=== PATIENT | female | born 1945 | race Caucasian/White ===

== ENCOUNTER 2016-10-24 18:22 | Emergency (ER) | payer OTHER ==
[2016-10-24 18:33] VITALS: BP 104/62; PULSE 83; TEMP 97.8; BMI 24.5
--- NOTE | 2016-10-24 19:27 | PDOC ---
History of Present Illness - General Chief Complaint: Pain, Acute Stated Complaint: PAIN FROM RIBS GOING TO BACK Time Seen by Provider: 10/24/16 19:04 History Source: Patient Exam Limitations: No Limitations - History of Present Illness Initial Comments: 10/24/16 19:25 My Chief Complaint: Reports having pain from her right side of her upper back to lower back [facility] History of Present Illness: Pt. is a 71 y/o female with h/o cardiac d/o, diverticulitis, osteoporosis, diverticulitis, spinal stenosis, fibromyalgia here today c/o complaining of pain from right upper back to right lower back that started approximately 4 days ago. Patient does not remember doing any heavy lifting that might of cause pain to develop. Patient does have bilateral rotator cuff tears and cannot use her right shoulder as usual. Patient reports that back pain is worse with movement. Patient denies any fever, nausea vomiting or any other symptoms. Patient took Aleve earlier today without relief of symptoms. Patient denies any urinary symptoms. Patient denies any radiation of pain down the legs or any saddle anesthesia or any incontinency. 10/24/16 21:28 10/24/16 21:56 Timing/Duration: changing over time Severity: moderate Associated Symptoms: reports: denies symptoms Past History - Past Medical History Allergies/Adverse Reactions: Allergies Allergy/AdvReac Type Severity Reaction Status Date / Time apple Allergy Verified 10/24/16 18:29 avocado Allergy Verified 10/24/16 18:29 peach Allergy Verified 10/24/16 18:29 IV DYE Allergy Uncoded 10/24/16 18:29 Home Medications: Ambulatory Orders Cyclobenzaprine HCl [Flexeril 10 mg] 10 mg PO Q8H PRN #21 tablet 10/24/16 Naproxen [Naprosyn -] 500 mg PO BID PRN #14 tablet 10/24/16 Nitrofurantoin Monohyd/M-Cryst [Macrobid -] 100 mg PO BID #14 capsule 10/24/16 Cardiac Disorders: Yes GI Disorders: Yes (DIVERTICULITIS) Other medical history: OSTEOPEROSIS, SPINAL STENSOSIS, FIBROMIALGIA, TORN ROTATOR CUFF B/L - Surgical History Cardiac Surgery: Yes (OPERN HEART AT AGE 19) - Psycho/Social/Smoking Cessation Hx Suicidal Ideation: No Smoking History: Never smoked Hx Alcohol Use: No Drug/Substance Use Hx: No Review of Systems - Review of Systems Able to Perform ROS?: Yes Constitutional: No: Symptoms Reported HEENTM: No: Symptoms Reported Respiratory: No: Symptoms reported Cardiac (ROS): No: Symptoms Reported ABD/GI: No: Symptoms Reported : No: Symptoms Reported Musculoskeletal: Yes: Back Pain (RT.THORACIC/LUMBAR BACK PAIN) *Physical Exam - Vital Signs Last Vital Signs Temp Pulse Resp BP Pulse Ox 97.8 F 83 16 104/62 97 10/24/16 18:23 10/24/16 18:23 10/24/16 18:23 10/24/16 18:23 10/24/16 18:23 - Physical Exam General Appearance: Yes: Appropriately Dressed Respiratory/Chest: positive: Lungs Clear, Normal Breath Sounds. negative: Chest Tender, Respiratory Distress Cardiovascular: positive: Regular Rhythm, Regular Rate, S1, S2 Gastrointestinal/Abdominal: positive: Normal Bowel Sounds, Soft. negative: Tender, Organomegaly, Distended, Guarding, Rebound, Tenderness, Hepatomegaly, Spleenomegaly Musculoskeletal: positive: Normal Inspection, Decreased Range of Motion (from waist ), Muscle Spasm (rt. sided thoracic/lumbar), Other (tenderness along paraspinal muscle thoracic/lumbar ). negative: CVA Tenderness, CVA Tenderness ( R), CVA Tenderness (L), Vertebral Tenderness Integumentary: positive: Normal Color Neurologic: positive: Alert, Normal Response, Motor Strength 5/5 (legs), Respond to painful stimul, Responsive. negative: Numbness, Sensory Deficit ( legs ) Deep Tendon Reflexes: Knee (L): 4+, Knee (R): 4+ Medical Decision Making - Medical Decision Making 10/24/16 21:32 Pt. is a 71 y/o female with h/o cardiac d/o, diverticulitis, osteoporosis, diverticulitis, spinal stenosis, fibromyalgia here today c/o complaining of pain from right upper back to right lower back that started approximately 4 days ago. Patient does not remember doing any heavy lifting that might of cause pain to develop. Patient does have bilateral rotator cuff tears and cannot use her right shoulder as usual. Patient reports that back pain is worse with movement. Patient denies any fever, nausea vomiting or any other symptoms. Patient took Aleve earlier today without relief of symptoms. Patient denies any urinary symptoms. She remembers doing mopping earlier in the week in her daughter's home Right thoracic and lumbar back pain uti Plan: Urine analysis Urine C&S Toradol 30 mg IM X-ray thoracic spine moderate 10 T 11 degenerative disc space narrowing is seen there is some moderate multilevel degenerative disc space 9 within the remainder of the thoracic spine. Per Dr. Mcmahan x-ray lumbar spine moderate to marked L1L2 moderate L4-L5 and moderate to marked L5 S1 degenerative disc space narrowing is seen with associated spondylosis. There is mild L4-L5 degenerative spondylolisthesis. Bilateral L4- L5 and L5-S1 degenerative facet arthropathy is noted which is probably moderate. There is mild lumbar dextrocurvature is seen per Dr. Mcmahan Will treat patient for UTI with Macrobid 100 mg twice a day Will give patient Naprosyn 500 mg twice a day when necessary pain 7 days 14 tablets we'll also give patient Flexeril 10 mg every 8 hours as needed for muscle spasm #21 tabs 10/24/16 21:49 10/24/16 21:52 Laboratory Tests 10/24/16 20:00 Urine Color Ltyellow Urine Appearance Clear Urine pH 7.0 Ur Specific [place] Pending Urine Protein Negative Urine Glucose (UA) Negative Urine Ketones Negative Urine Blood 1+ H Urine Nitrite Negative Urine Bilirubin Negative Urine Urobilinogen Negative Ur Leukocyte Esterase 2+ H Urine RBC 12 Urine WBC 25 Ur Epithelial Cells Rare Urine Mucus Rare *DC/Admit/Observation/Transfer Diagnosis at time of Disposition: History of strain of back Urinary tract infection Qualifiers: Urinary tract infection type: acute cystitis Hematuria presence: with hematuria Qualified Code(s): N30.01 - Acute cystitis with hematuria - Discharge Dispostion Disposition: HOME Condition at time of disposition: Stable - Referrals Referrals: Edmund Collins MD [Staff Physician] - - Patient Instructions Additional Instructions: Avoid any strenuous activities or exercise such as mopping sweeping anything that twists your torso Return to emergency room if symptoms worsen any fever, nausea, vomiting, or worsening pain Follow-up with your orthopedist as soon as possible Drink a lot a fluids especially cranberry juice Patient voiced understanding of discharge instructions and all questions were answered
[2016-10-24] MEDS ORDERED: KETOROLAC TROMETHAMINE 60 MG/2 ML VIAL IM ONE (19:57)
[2016-10-24 20:14] LABS: URINE APPEARANCE CLEAR; URINE BILIRUBIN NEGATIVE (NEGATIVE); URINE BLOOD 1+ (NEGATIVE); URINE COLOR LTYELLOW; URINE GLUCOSE (UA) NEGATIVE (NEGATIVE); URINE KETONE NEGATIVE (NEGATIVE); URINE LEUK ESTERASE 2+ (NEGATIVE); URINE NITRITE NEGATIVE (NEGATIVE); URINE PROTEIN NEGATIVE (NEGATIVE); URINE UROBILINOGEN NEGATIVE E.U./dl (0.2-1.0)
[2016-10-24] MEDS ORDERED: KETOROLAC TROMETHAMINE 30 MG/1 ML VIAL ONE (20:14)
[2016-10-24 20:16] LABS: URINE MUCUS RARE; URINE RBC 12 /hpf (0-3); URINE WBC 25 /hpf (3-5)
== END 2016-10-24 22:10 | disposition home or self-care (01) ==
LOC: JERFT 18:22 → JER 18:22 → JERFT 22:10
PROC: 3E0233Z Introduction of Anti-inflammatory into Muscle, Percutaneous Approach (ICD-10-PCS; principal; 2016-10-24)
DX: S39.012A Strain of muscle, fascia and tendon of lower back, initial encounter (principal); X08.8XXA Exposure to other specified smoke, fire and flames, initial encounter; Y92.9 Unspecified place or not applicable; Y99.9 Unspecified external cause status; I51.9 Heart disease, unspecified; M81.0 Age-related osteoporosis without current pathological fracture
CPT/HCPCS: 72070-TC; 72100-TC; 81003; 81015; 87086; 96372; 99281-25

== ENCOUNTER 2017-06-01 08:13 | Inpatient (IN) | payer OTHER ==
[2017-06-01 08:19] VITALS: BMI 24.7
--- NOTE | 2017-06-01 08:50 | PDOC ---
History of Present Illness - General Chief Complaint: Pain, Acute Stated Complaint: ABD PAIN Time Seen by Provider: 06/01/17 08:50 History Source: Patient Exam Limitations: No Limitations - History of Present Illness Initial Comments: 06/01/17 08:51 Pt. is a 71 y/o female with h/o ASD repair, diverticulitis, osteoporosis, diverticulitis, spinal stenosis, fibromyalgia here today c/o complaining of pain on the upper and lower right quadrant for the past 24h. Denies vomiting, fever, chills. Normal BM. Has history of diverticulitis with recent admission requiring antibiotics in the setting of left-sided abdominal pain, has known history of gallstones without complications. No other abdominal surgeries in the past. No cardiopulmonary complaints. Past History - Past Medical History Allergies/Adverse Reactions: Allergies Allergy/AdvReac Type Severity Reaction Status Date / Time apple Allergy Verified 06/01/17 08:16 avocado Allergy Verified 06/01/17 08:16 peach Allergy Verified 06/01/17 08:16 IV DYE Allergy Uncoded 06/01/17 08:16 Home Medications: Ambulatory Orders Acetaminophen [Tylenol] 650 mg PO DAILY PRN 06/01/17 Amoxicillin/Potassium Clav [Augmentin 875-125 Tablet] 1 each PO TID 10 Days #30 tablet 06/01/17 Atorvastatin Ca [Lipitor] 20 mg PO HS 06/01/17 Cholecalciferol (Vitamin D3) [Vitamin D] 2,000 unit PO DAILY 06/01/17 Lisinopril 10 mg PO DAILY 06/01/17 Meclizine HCl 25 mg PO DAILY 06/01/17 [place]-3S/Dha/Epa/Fish Oil [Fish Oil 1,200 mg Softgel] 1 each PO DAILY 06/01/17 Omeprazole 20 mg PO DAILY 06/01/17 Cardiac Disorders: Yes COPD: No GI Disorders: Yes (DIVERTICULITIS) - Surgical History Cardiac Surgery: Yes (OPERN HEART AT AGE 19) - Suicide/Smoking/Psychosocial Hx Smoking History: Never smoked Hx Alcohol Use: No Drug/Substance Use Hx: No Review of Systems - Review of Systems Able to Perform ROS?: Yes Is the patient limited Georgian proficient: No Constitutional: No: Symptoms Reported HEENTM: No: Symptoms Reported Respiratory: No: Symptoms reported Cardiac (ROS): No: Symptoms Reported ABD/GI: Yes: See HPI. No: Diarrhea, Vomiting : No: Symptoms Reported Musculoskeletal: No: Symptoms Reported Integumentary: No: Symptoms Reported Neurological: No: Symptoms reported All Other Systems: Reviewed and Negative *Physical Exam - Vital Signs Last Vital Signs Temp Pulse Resp BP Pulse Ox 98.5 F 85 19 138/85 98 06/01/17 08:16 06/01/17 08:16 06/01/17 08:16 06/01/17 08:16 06/01/17 08:16 - Physical Exam General Appearance: Yes: Nourished, Appropriately Dressed. No: Apparent Distress HEENT: positive: EOMI, GONZALO, Normal ENT Inspection Neck: negative: Tender Respiratory/Chest: positive: Lungs Clear, Normal Breath Sounds. negative: Chest Tender, Respiratory Distress Cardiovascular: positive: Regular Rhythm, Regular Rate, S1, S2 Gastrointestinal/Abdominal: positive: Normal Bowel Sounds, Tender (urq and lrq as well as rcva), Soft, Rebound, Tenderness Neurologic: positive: Fully Oriented, Alert, Normal Mood/Affect, Normal Response , Motor Strength / ED Treatment Course - LABORATORY CBC & Chemistry Diagram: 06/01/17 09:27 06/01/17 09:27 Medical Decision Making - Medical Decision Making Pt. is a 71 y/o female with h/o ASD repair, diverticulitis, osteoporosis, diverticulitis, spinal stenosis, fibromyalgia here today c/o complaining of pain on the upper and lower right quadrant for the past 24h. U/S:. No evidence of cholelithiasis or acute cholecystitis. 2. Hepatic steatosis. 3. Prominent extrahepatic bile duct measuring 6 mm in diameter, some of which may be technical. No evidence of intrahepatic biliary ductal dilatation. Please correlate clinically with serum biliary markers. CT abdomen with oral contrast 1. Short segment eccentric wall thickening in the mid ascending colon is most likely due to acute diverticulitis. No free intraperitoneal air. No drainable collection at this time. Correlation with colonoscopy is recommended after completion of therapy to exclude underlying neoplasm. 2. Nonobstructing nephrolithiasis as above. No obstructive uropathy. 06/01/17 15:12 06/01/17 15:13 Due to difficulty with pain control patient will be started on IV zosyn for treatment of diverticulitis and admitted to Med/surg 06/01/17 15:27 *DC/Admit/Observation/Transfer Diagnosis at time of Disposition: Acute diverticulitis - Discharge Dispostion Admit: Yes - Prescriptions Prescriptions: Amoxicillin/Potassium Clav [Augmentin 875-125 Tablet] 1 each PO TID 10 Days #30 tablet - Referrals Referrals: STAFF,NOT ON [Primary Care Provider] - - Patient Instructions - Post Discharge Activity
[2017-06-01] MEDS ORDERED: morphine CARPU-JECT 4 MG/1 ML DISP.SYRIN IVPUSH ONE ×2 (09:19→14:36)
[2017-06-01] MEDS ORDERED: morphine CARPU-JECT 10 MG/1 ML DISP.SYRIN ONE ×2 (09:45→14:52)
[2017-06-01 10:06] LABS: BASO % 0.6 % (0-2.0); HEMATOCRIT 37.1 % (32.4-45.2); HEMOGLOBIN 12.1 GM/dL (10.7-15.3); LYMPH % 12.9 % (8-40); MCH 29.3 pg (25.7-33.7); MCHC 32.6 g/dl (32.0-36.0); MEAN CELL VOLUME 89.8 fl (80-96); MONO % 7.7 % (3.8-10.2); NEUT % 77.8 % (42.8-82.8); PLATELET COUNT 174 K/MM3 (134-434); RBC 4.13 M/mm3 (3.60-5.2); RDW 13.7 % (11.6-15.6); WHITE BLOOD COUNT 12.5 K/mm3 (4.0-10.0)
[2017-06-01 10:07] LABS: URINE APPEARANCE CLEAR; URINE BILIRUBIN NEGATIVE (NEGATIVE); URINE BLOOD NEGATIVE (NEGATIVE); URINE COLOR LTYELLOW; URINE GLUCOSE (UA) NEGATIVE (NEGATIVE); URINE KETONE NEGATIVE (NEGATIVE); URINE NITRITE NEGATIVE (NEGATIVE); URINE PROTEIN NEGATIVE (NEGATIVE); URINE UROBILINOGEN NEGATIVE mg/dL (0.2-1.0)
[2017-06-01 10:11] LABS: URINE LEUK ESTERASE 2+ (NEGATIVE)
[2017-06-01 10:16] LABS: EPI CELLS RARE /HPF (FEW); URIC ACID CRYSTALS RARE /hpf (NONE SEEN); URINE MUCUS RARE
[2017-06-01 10:17] LABS: ALBUMIN 3.7 g/dl (3.4-5.0); ALK PHOS 84 U/L (45-117); ANION GAP 6 (8-16); BILIRUBIN,TOTAL 0.5 mg/dL (0.2-1.0); BLOOD UREA NITROGEN 14 mg/dL (7-18); CALCIUM 8.7 mg/dL (8.5-10.1); CHLORIDE 109 mmol/L (98-107); CO2 26 mmol/L (21-32); CREATININE 0.6 mg/dL (0.55-1.02); GLUCOSE,RANDOM 109 mg/dL (74-106); SGPT/ALT 24 U/L (12-78); SODIUM 141 mmol/L (136-145); TOT PROT 6.6 g/dl (6.4-8.2)
[2017-06-01 10:20] LABS: POTASSIUM 4.6 mmol/L (3.5-5.1); SGOT/AST 21 U/L (15-37)
--- NOTE | 2017-06-01 11:11 | PDOC ---
Attending Attestation - Resident Resident Name: Gabriel Mckee - ED Attending Attestation I have performed the following: I have examined & evaluated the patient, The case was reviewed & discussed with the resident, I agree w/resident's findings & plan, Exceptions are as noted - HPI HPI: 06/01/17 11:10 71-year-old female presents with right-sided abdominal pain and nausea since yesterday morning. Normal nonbloody bowel movement, no actual vomiting, no fevers or chills. Has history of diverticulitis with recent admission requiring antibiotics in the setting of left-sided abdominal pain, has known history of gallstones without complications. No other abdominal surgeries in the past. No cardiopulmonary complaints. - Physicial Exam PE: 06/01/17 11:10 Afebrile. No jaundice or pallor. Abdomen is soft and nondistended. Tenderness diffusely greatest in the right abdomen with guarding in the right upper quadrant, positive rebound to the right upper quadrant. No CVA tenderness. Bedside ultrasound with ? stone in the gallbladder. - Medical Decision Making 06/01/17 11:11 Patient seen and evaluated with the resident. I agree with the overall evaluation, assessment, and management with the following summary of visit: 71-year-old female with acute onset of right upper quadrant pain since yesterday morning, persistent right-sided abdominal pain since then with localizing findings to the right upper quadrant. Presentation seems most consistent with biliary etiology/cholecystitis, rule out renal etiology, rule out colitis/diverticulitis. Labs, urinalysis Pain control Right upper quadrant ultrasound, CAT scan of the abdomen and pelvis Reassess, likely admission 06/01/17 15:05 CTAP c/w diverticulitis, still requiring IV pain control. IV abx, admission. Heart Score/ECG Review #1 ECG reviewed & interpreted by me at: 12:40 General ECG Interpretation: Sinus Rhythm, Normal Rate (82), Normal Intervals ( qtc 439), No acute ischemic changes
[2017-06-01] MEDS ORDERED: AMOX TR/POT CLAV 875MG/125MG TABLETS (FP) PO ONE (14:36)
[2017-06-01] MEDS ORDERED: PIPERACILLIN/TAZOB 4.5 GM/100 ML PREMIX BAG IVPB ONE (14:53)
[2017-06-01] MEDS ORDERED: PIPERACILLIN/TAZOB 4.5 GM 4.5 GM in DEXTROSE 5%-WATER - 100 ML IVPB ONE (16:15)
[2017-06-01] MEDS ORDERED: SODIUM CHLORIDE 1,000 ML IV SCH (16:45)
[2017-06-01] MEDS ORDERED: PIPERACILLIN/TAZOB 4.5 GM 4.5 GM/100 ML BAG IVPB ONE (16:45)
[2017-06-01] MEDS ORDERED: PNEUMOCOCCAL 23 VACCINE 0.5 ML VIAL IM ONE (17:59)
[2017-06-01] MEDS ORDERED: PNEUMOC 13-VAL CONJ-DIP CRM/PF 0.5 ML DISP.SYRIN IM ONE (18:30)
[2017-06-01] MEDS ORDERED: HYDROmorphone HCL CARPU-JECT 2 MG/1 ML DISP.SYRIN IVPB PRN (18:49)
--- NOTE | 2017-06-01 18:51 | HP ---
Admitting History and Physical - Primary Care Physician PCP: Rachael Triplett - Admission History of Present Illness: 71 y/o female with h/o ASD repair, diverticulitis, osteoporosis, diverticulitis , spinal stenosis, fibromyalgia here today c/o complaining of pain on the upper and lower right quadrant for the past 24h. Denies vomiting, fever, chills. Normal BM. Has history of diverticulitis with recent admission requiring antibiotics in the setting of left-sided abdominal pain, has known history of gallstones without complications. No other abdominal surgeries in the past. No cardiopulmonary complaints. - Past Medical History Gastrointestinal: Yes: Diverticulitis - Smoking History Smoking history: Never smoked - Alcohol/Substance Use Hx Alcohol Use: No Home Medications - Allergies Allergies/Adverse Reactions: Allergies Allergy/AdvReac Type Severity Reaction Status Date / Time apple Allergy Verified 06/01/17 08:16 avocado Allergy Verified 06/01/17 08:16 peach Allergy Verified 06/01/17 08:16 IV DYE Allergy Uncoded 06/01/17 08:16 - Home Medications Home Medications: Ambulatory Orders Acetaminophen [Tylenol] 650 mg PO DAILY PRN 06/01/17 Amoxicillin/Potassium Clav [Augmentin 875-125 Tablet] 1 each PO TID 10 Days #30 tablet 06/01/17 Atorvastatin Ca [Lipitor] 20 mg PO HS 06/01/17 Cholecalciferol (Vitamin D3) [Vitamin D] 2,000 unit PO DAILY 06/01/17 Lisinopril 10 mg PO DAILY 06/01/17 Meclizine HCl 25 mg PO DAILY 06/01/17 [place]-3S/Dha/Epa/Fish Oil [Fish Oil 1,200 mg Softgel] 1 each PO DAILY 06/01/17 Omeprazole 20 mg PO DAILY 06/01/17 Physical Examination Vital Signs: Vital Signs Temperature 98.5 F 06/01/17 15:47 Pulse Rate 93 H 06/01/17 15:47 Respiratory Rate 18 06/01/17 15:47 Blood Pressure 135/78 06/01/17 15:47 O2 Sat by Pulse Oximetry (%) 97 06/01/17 15:47 Constitutional: Yes: No Distress Eyes: Yes: Conjunctiva Clear HENT: Yes: Atraumatic Neck: Yes: Supple Cardiovascular: Yes: Regular Rate and Rhythm Respiratory: Yes: CTA Bilaterally Gastrointestinal: Yes: Normal Bowel Sounds, Tenderness (rlq) Extremities: Yes: WNL Edema: No Peripheral Pulses WNL: Yes Neurological: Yes: Alert, Oriented Labs: CBC, BMP 06/01/17 09:27 06/01/17 09:27 Problem List - Problems (1) Acute diverticulitis Assessment/Plan: npo ivf iv abx gi consult Code(s): K57.92 - DVTRCLI OF INTEST, PART UNSP, W/O PERF OR ABSCESS W/O BLEED Assessment/Plan Laboratory Tests 06/01/17 06/01/17 06/01/17 09:27 09:27 09:27 WBC 12.5 H RBC 4.13 Hgb 12.1 Hct 37.1 MCV 89.8 MCH 29.3 MCHC 32.6 RDW 13.7 Plt Count 174 MPV 9.0 Neutrophils % 77.8 Lymphocytes % 12.9 Monocytes % 7.7 Eosinophils % 1.0 Basophils % 0.6 Sodium 141 Potassium 4.6 Chloride 109 H Carbon Dioxide 26 Anion Gap 6 L BUN 14 Creatinine 0.6 Creat Clearance w eGFR > 60 Random Glucose 109 H Calcium 8.7 Total Bilirubin 0.5 AST 21 ALT 24 Alkaline Phosphatase 84 Total Protein 6.6 Albumin 3.7 Urine Color Ltyellow Urine Appearance Clear Urine pH 6.0 Ur Specific [place] 1.018 Urine Protein Negative Urine Glucose (UA) Negative Urine Ketones Negative Urine Blood Negative Urine Nitrite Negative Urine Bilirubin Negative Urine Urobilinogen Negative Ur Leukocyte Esterase 2+ H Urine WBC (Auto) 16 Urine RBC (Auto) 6 Ur Epithelial Cells Rare Uric Acid Crystals Rare Urine Mucus Rare Active Medications Generic Name Dose Route Start Last Admin Trade Name Freq PRN Reason Stop Dose Admin Atorvastatin Calcium 20 mg 06/01/17 22:00 Lipitor - PO HS LYNN Hydromorphone HCl 1 mg 06/01/17 18:49 Dilaudid Injection - IVPB Q3H PRN PAIN Sodium Chloride 1,000 mls @ 75 mls/hr 06/01/17 16:45 06/01/17 16:54 Normal Saline - IV 75 mls/hr ASDIR LYNN Administration Dextrose/Sodium Chloride 1,000 mls @ 75 mls/hr 06/01/17 19:00 D5-1/2ns - IV ASDIR LYNN Metronidazole 500 mg in 100 mls @ 100 mls/hr 06/01/17 19:00 Flagyl 500mg Premixed Ivpb - IVPB Q8H-IV LYNN Levofloxacin 500 mg in 100 mls @ 100 mls/hr 06/02/17 08:00 Levaquin 500 Mg Premixed Ivpb - IVPB DAILY@0800 LYNN Lisinopril 10 mg 06/02/17 10:00 Prinivil PO DAILY LYNN Pantoprazole Sodium 40 mg 06/02/17 10:00 Protonix Iv IVPUSH DAILY YLNN
[2017-06-01] MEDS: METRONIDAZOLE 500 MG PREMIXED 500 MG/100 ML MG IVPB SCH (19:00)
[2017-06-01] MEDS: DEXTROSE 5%-0.45% SALINE 1,000 ML IV SCH (19:00)
[2017-06-01] MEDS ORDERED: ONDANSETRON 4 MG/2 ML VIAL IVPUSH PRN (20:42)
[2017-06-01] MEDS ORDERED: PANTOPRAZOLE SODIUM 40 MG VIAL IVPUSH ONE (20:45)
[2017-06-01] MEDS ORDERED: ATORVASTATIN CA 20 MG TABLET (FP) PO SCH (22:00)
--- NOTE | 2017-06-01 22:01 | EKG ---
Test Reason : Blood Pressure : / mmHG Vent. Rate : 082 BPM Atrial Rate : 082 BPM P-R Int : 148 ms QRS Dur : 074 ms QT Int : 376 ms P-R-T Axes : 045 -24 019 degrees QTc Int : 439 ms NORMAL SINUS RHYTHM NONSPECIFIC T WAVE ABNORMALITY ABNORMAL ECG NO PREVIOUS ECGS AVAILABLE Confirmed by HEATHER MAI MD ([id number]) on 06/01/2017 10:00:29 PM Referred By: Confirmed By:HEATHER MAI MD
[2017-06-02] MEDS: METRONIDAZOLE 500 MG PREMIXED 500 MG/100 ML MG IVPB SCH ×2 (02:47→10:07)
[2017-06-02] MEDS: morphine CARPU-JECT 10 MG/1 ML DISP.SYRIN IVPUSH PRN ×4 (02:47→22:07)
[2017-06-02 07:53] LABS: BASO % 0.4 % (0-2.0); EOS % 1.1 % (0-4.5); HEMATOCRIT 35.1 % (32.4-45.2); HEMOGLOBIN 11.5 GM/dL (10.7-15.3); LYMPH % 21.8 % (8-40); MCH 29.3 pg (25.7-33.7); MCHC 32.9 g/dl (32.0-36.0); MEAN CELL VOLUME 89.2 fl (80-96); MEAN PLT VOLUME 8.9 fl (7.5-11.1); MONO % 7.7 % (3.8-10.2); PLATELET COUNT 167 K/MM3 (134-434); RBC 3.94 M/mm3 (3.60-5.2); RDW 13.7 % (11.6-15.6); WHITE BLOOD COUNT 9.4 K/mm3 (4.0-10.0)
[2017-06-02] MEDS ORDERED: LEVOFLOXACIN 500 MG IVPB 500 MG/100 ML BAG IVPB SCH (08:00)
[2017-06-02 08:01] LABS: ALBUMIN 3.1 g/dl (3.4-5.0); ALK PHOS 81 U/L (45-117); ANION GAP 9 (8-16); BILIRUBIN,TOTAL 0.8 mg/dL (0.2-1.0); BLOOD UREA NITROGEN 9 mg/dL (7-18); CALCIUM 8.3 mg/dL (8.5-10.1); CHLORIDE 105 mmol/L (98-107); CO2 26 mmol/L (21-32); CREATININE 0.6 mg/dL (0.55-1.02); GLUCOSE,RANDOM 113 mg/dL (74-106); POTASSIUM 3.8 mmol/L (3.5-5.1); SGOT/AST 11 U/L (15-37); SGPT/ALT 20 U/L (12-78); SODIUM 140 mmol/L (136-145); TOT PROT 5.9 g/dl (6.4-8.2)
[2017-06-02] MEDS: LISINOPRIL 10 MG TABLET (FP) PO SCH (10:07)
[2017-06-02] MEDS: PANTOPRAZOLE SODIUM 40 MG VIAL IVPUSH SCH (10:07)
--- NOTE | 2017-06-02 13:57 | CON.ID ---
Consult Consult Specialty:: infectious diseases Reason for Consultation:: diverticulitis - History of Present Illness Chief Complaint: abd pain History of Present Illness: 71 y/o female with h/o ASD repair, diverticulitis, osteoporosis, diverticulitis , spinal stenosis, fibromyalgia here admitted with the upper and lower right quadrant for the past 24h.her pain is mostly now in the rt lower quadrant also tender in left lower quadrant Denies vomiting, fever, chills. Normal BM. Has history of diverticulitis with recent admission requiring antibiotics in the setting of left-sided abdominal pain, patient was admitted in [place] and also mentions that she had a colonoscopy done which was negative according to her currently she mentions that she has severe pain denies any nausea fever or vomiting - History Source History Provided By: Patient Limitations to Obtaining History: No Limitations - Past Medical History Gastrointestinal: Yes: Diverticulitis - Alcohol/Substance Use Hx Alcohol Use: No - Smoking History Smoking history: Never smoked Home Medications - Allergies Allergies/Adverse Reactions: Allergies Allergy/AdvReac Type Severity Reaction Status Date / Time apple Allergy Verified 06/01/17 08:16 avocado Allergy Verified 06/01/17 08:16 peach Allergy Verified 06/01/17 08:16 IV DYE Allergy Uncoded 06/01/17 08:16 - Home Medications Home Medications: Ambulatory Orders Acetaminophen [Tylenol] 650 mg PO DAILY PRN 06/01/17 Amoxicillin/Potassium Clav [Augmentin 875-125 Tablet] 1 each PO TID 10 Days #30 tablet 06/01/17 Atorvastatin Ca [Lipitor] 20 mg PO HS 06/01/17 Cholecalciferol (Vitamin D3) [Vitamin D] 2,000 unit PO DAILY 06/01/17 Lisinopril 10 mg PO DAILY 06/01/17 Meclizine HCl 25 mg PO DAILY 06/01/17 [place]-3S/Dha/Epa/Fish Oil [Fish Oil 1,200 mg Softgel] 1 each PO DAILY 06/01/17 Omeprazole 20 mg PO DAILY 06/01/17 Review of Systems - Review of Systems Constitutional: reports: Loss of Appetite, Other Eyes: reports: No Symptoms HENT: reports: No Symptoms Neck: reports: No Symptoms Cardiovascular: reports: No Symptoms Respiratory: reports: No Symptoms Gastrointestinal: reports: Abdominal Pain, Bloating Musculoskeletal: reports: No Symptoms Integumentary: reports: No Symptoms Neurological: reports: No Symptoms Endocrine: reports: No Symptoms Hematology/Lymphatic: reports: No Symptoms Psychiatric: reports: No Symptoms Physical Exam Vital Signs: Vital Signs Temperature 98.1 F 06/02/17 11:27 Pulse Rate 82 06/02/17 11:27 Respiratory Rate 18 06/02/17 11:27 Blood Pressure 121/70 06/02/17 11:27 O2 Sat by Pulse Oximetry (%) 95 06/02/17 09:00 Constitutional: Yes: Mild Distress Eyes: Yes: Conjunctiva Clear HENT: Yes: Atraumatic Neck: Yes: Supple Cardiovascular: Yes: S1, S2 Respiratory: Yes: Regular, CTA Bilaterally Gastrointestinal: Yes: Soft, Hypoactive Bowel Sounds, Tenderness (legt lwer and rt lower quadrant and rt upper quadrant) Musculoskeletal: Yes: WNL Extremities: Yes: WNL Neurological: Yes: Alert, Oriented Psychiatric: Yes: Alert, Oriented Labs: CBC, BMP 06/02/17 06:00 06/02/17 06:00 Imaging - Results Cat Scan: Report Reviewed, Image Reviewed Ultrasound: Report Reviewed, Image Reviewed Assessment/Plan patient with recurrent it seems diverticulitis recent colonoscopy Problem List - Problems (1) Acute diverticulitis Code(s): K57.92 - DVTRCLI OF INTEST, PART UNSP, W/O PERF OR ABSCESS W/O BLEED plan will change patient to syn await for gi to see the patient rest as per primary monitor wbc
[2017-06-02] MEDS ORDERED: PT OWN MED DRAWER 7, Y5N ONE ×2 (14:25→15:15)
--- NOTE | 2017-06-02 14:29 | CON.GI ---
Consult Consult Specialty:: GI Referred by:: Dr. Triplett Reason for Consultation:: Diverticulitis - History of Present Illness Chief Complaint: "I was having pain on my right side from thursday" History of Present Illness: 71F admitted through [facility] ER for evaluation of abdominal pain. She explains that the pain started on this past Thursday, was right sided, sharp and became progressively worse prompting her ER visit yesterday morning. A GI consult was called today. Initial WBC was 12.5. Today it is 9.4. There was no associated rectal bleeding, diarrhea, fevers/chills. Ms. Sanchez explains that the pain was remniscent of an episode of her 1st episode of diverticulitis that occurred while living in [place] however she believes that this occurred on her left side. She has been started on Abx and pain continues, somewhat improved from yesterday. She had a colonoscopy 9 months ago in [place] and believes that she was told of divertocilosis. There is no family history of colorectal cancer or other GI malignancy. - History Source History Provided By: Patient, Medical Record Limitations to Obtaining History: No Limitations - Past Medical History Cardio/Vascular: Yes: Other (ASD repaired at age 19) Gastrointestinal: Yes: Diverticulitis, Diverticulosis Musculoskeletal: Yes: Osteoarthritis, Other (Spinal stenosis) - Past Surgical History Past Surgical History: Yes: Additional Surgical History: Atrial Septal Defect repaired at age 19 - Alcohol/Substance Use Hx Alcohol Use: No History of Substance Use: reports: None - Smoking History Smoking history: Never smoked - Social History Usual Living Arrangement: Alone ADL: Independent Occupation: Retired Hostess Place of : [facility] History of Recent Travel: No Home Medications - Allergies Allergies/Adverse Reactions: Allergies Allergy/AdvReac Type Severity Reaction Status Date / Time apple Allergy Verified 06/01/17 08:16 avocado Allergy Verified 06/01/17 08:16 peach Allergy Verified 06/01/17 08:16 IV DYE Allergy Uncoded 06/01/17 08:16 - Home Medications Home Medications: Ambulatory Orders Acetaminophen [Tylenol] 650 mg PO DAILY PRN 06/01/17 Amoxicillin/Potassium Clav [Augmentin 875-125 Tablet] 1 each PO TID 10 Days #30 tablet 06/01/17 Atorvastatin Ca [Lipitor] 20 mg PO HS 06/01/17 Cholecalciferol (Vitamin D3) [Vitamin D] 2,000 unit PO DAILY 06/01/17 Lisinopril 10 mg PO DAILY 06/01/17 Meclizine HCl 25 mg PO DAILY 06/01/17 [employer]-3S/Dha/Epa/Fish Oil [Fish Oil 1,200 mg Softgel] 1 each PO DAILY 06/01/17 Omeprazole 20 mg PO DAILY 06/01/17 Family Disease History - Family Disease History Family Disease History: Other: Father (: 85: NE), Mother (Alive: 86), Brother (1, CAD/CHF), Sister (1, healthy), Son (1, healthy), Daughter (1, healthy) Review of Systems - Review of Systems Constitutional: denies: Fever Cardiovascular: denies: Chest Pain, Shortness of Breath Respiratory: denies: Cough Gastrointestinal: reports: Abdominal Pain. denies: Constipation, Diarrhea, Rectal Bleeding, Vomiting, Vomiting Blood Physical Exam-GI Vital Signs: Vital Signs Temperature 98.1 F 06/02/17 11:27 Pulse Rate 82 06/02/17 11:27 Respiratory Rate 18 06/02/17 11:27 Blood Pressure 121/70 06/02/17 11:27 O2 Sat by Pulse Oximetry (%) 95 06/02/17 09:00 Constitutional: Yes: Calm Eyes: No: Sclera Icterus Cardiovascular: Yes: Regular Rate and Rhythm. No: Murmur Respiratory: Yes: CTA Bilaterally Gastrointestinal Inspection: Yes: Scars (midline vertical pelvic surgical scar) ...Auscultate: Yes: Normoactive Bowel Sounds ...Palpate: Yes: Tenderness (significant TTP right abdomen). No: Guarding, Hepatomegaly, Splenomegaly, Tenderness, Rebound ...Percussion: No: Tympanitic Edema: No (No LE edema) Neurological: Yes: Alert, Oriented Labs: CBC, BMP 06/02/17 06:00 06/02/17 06:00 Imaging - Results Cat Scan: Report Reviewed, Image Reviewed Ultrasound: Report Reviewed (no evidence of cholecystitis. 6mm CBD) Problem List - Problems (1) Acute diverticulitis Assessment/Plan: Suspected acute right sided diverticulitis: Still with significant right sided abdominal pain. I did not assess her yesterday but overall Ms. Sanchez tells me that it is somewhat improved. Leukocytosis improved as well. If pain continues to improve she will need to be on an Abx regimen for total of 10 days including days on IV abx. Advised the following: NPO until pain improved Daily labs: CBC/CRP/BMP IV hydration. patient could likely tolerate more than 75cc/hr. Management per PMD IV Abx: on zosyn per ID If diarrhea dveleops check stool for C. Diff Consider Surgical evaluation Explained that she will need follow-up as an outpatient with her porcelain technician in [place]. She plans on returning to [place] the end of the month Code(s): K57.92 - DVTRCLI OF INTEST, PART UNSP, W/O PERF OR ABSCESS W/O BLEED
[2017-06-02] MEDS ORDERED: PIPERACILLIN/TAZOB 3.375 GM 3.375 GM/50 ML BAG IVPB SCH (14:30)
[2017-06-02] MEDS: DEXTROSE 5%-0.45% SALINE 1,000 ML IV SCH ×2 (15:43→22:11)
[2017-06-02] MEDS: PIPERACILLIN/TAZOB 3.375 GM 3.375 GM in DEXTROSE 5%-WATER - 100 ML IVPB SCH (17:04)
--- NOTE | 2017-06-02 20:05 | PN ---
Progress Note, Physician History of Present Illness: still has rlq pain npo - Current Medication List Current Medications: Active Medications Piperacillin Sod/Tazobactam (Sod 3.375 gm/ Dextrose) 100 mls @ 200 mls/hr IVPB Q8H-IV LYNN PRN Reason: Protocol Last Admin: 06/02/17 17:04 Dose: 200 mls/hr Dextrose/Sodium Chloride (D5-1/2ns -) 1,000 mls @ 100 mls/hr IV ASDIR L[facility]NN Lisinopril (Prinivil) 10 mg PO DAILY L[facility]NN Last Admin: 06/02/17 10:07 Dose: Not Given Morphine Sulfate (Morphine Injection -) 2 mg IVPUSH Q4H PRN PRN Reason: pain Last Admin: 06/02/17 15:04 Dose: 2 mg Ondansetron HCl (Zofran Injection) 4 mg IVPUSH Q4H PRN PRN Reason: NAUSEA AND/OR VOMITING Last Admin: 06/01/17 20:48 Dose: 4 mg Pantoprazole Sodium (Protonix Iv) 40 mg IVPUSH DAILY [facility] Last Admin: 06/02/17 10:07 Dose: 40 mg - Objective Vital Signs: Vital Signs Temperature 98.5 F 06/02/17 16:30 Pulse Rate 74 06/02/17 16:30 Respiratory Rate 20 06/02/17 16:30 Blood Pressure 107/58 06/02/17 16:30 O2 Sat by Pulse Oximetry (%) 95 06/02/17 09:00 Constitutional: Yes: No Distress HENT: Yes: Atraumatic Neck: Yes: Supple Cardiovascular: Yes: Regular Rate and Rhythm Respiratory: Yes: CTA Bilaterally Gastrointestinal: Yes: Normal Bowel Sounds, Tenderness (RLQ) Extremities: Yes: WNL Edema: No Neurological: Yes: Alert, Oriented Labs: CBC, BMP 06/02/17 06:00 06/02/17 06:00 Problem List - Problems (1) Acute diverticulitis Assessment/Plan: npo ivf iv abx gi consult...done iv protonix Code(s): K57.92 - DVTRCLI OF INTEST, PART UNSP, W/O PERF OR ABSCESS W/O BLEED (2) HTN (hypertension) Assessment/Plan: on meds Code(s): I10 - ESSENTIAL (PRIMARY) HYPERTENSION
[2017-06-03] MEDS: PIPERACILLIN/TAZOB 3.375 GM 3.375 GM in DEXTROSE 5%-WATER - 100 ML IVPB SCH ×3 (01:11→17:23)
[2017-06-03] MEDS: morphine CARPU-JECT 10 MG/1 ML DISP.SYRIN IVPUSH PRN ×3 (05:02→22:15)
[2017-06-03 08:40] LABS: BASO % 0.6 % (0-2.0); EOS % 2.5 % (0-4.5); HEMATOCRIT 34.7 % (32.4-45.2); HEMOGLOBIN 11.4 GM/dL (10.7-15.3); LYMPH % 24.9 % (8-40); MCH 29.5 pg (25.7-33.7); MEAN CELL VOLUME 89.5 fl (80-96); MEAN PLT VOLUME 9.1 fl (7.5-11.1); MONO % 8.8 % (3.8-10.2); NEUT % 63.2 % (42.8-82.8); PLATELET COUNT 168 K/MM3 (134-434); RBC 3.88 M/mm3 (3.60-5.2); RDW 13.4 % (11.6-15.6); WHITE BLOOD COUNT 6.4 K/mm3 (4.0-10.0)
[2017-06-03 09:11] LABS: CHLORIDE 105 mmol/L (98-107); POTASSIUM 3.8 mmol/L (3.5-5.1); SODIUM 141 mmol/L (136-145)
[2017-06-03 09:21] LABS: ANION GAP 11 (8-16); BLOOD UREA NITROGEN 8 mg/dL (7-18); CALCIUM 8.3 mg/dL (8.5-10.1); CO2 25 mmol/L (21-32); CREATININE 0.5 mg/dL (0.55-1.02); GLUCOSE,RANDOM 111 mg/dL (74-106)
[2017-06-03] MEDS ORDERED: PT OWN MED DRAWER 7, Y5N ONE ×2 (10:00→17:17)
[2017-06-03] MEDS: PANTOPRAZOLE SODIUM 40 MG VIAL IVPUSH SCH (11:08)
[2017-06-03] MEDS: DEXTROSE 5%-0.45% SALINE 1,000 ML IV SCH ×3 (11:09→22:13)
[2017-06-03] MEDS: LISINOPRIL 10 MG TABLET (FP) PO SCH (11:09)
--- NOTE | 2017-06-03 13:20 | PN ---
GI Progress Note Subjective: Hungry. States that pain is a little better today - Objective Vital Signs: Vital Signs Temperature 98.1 F 06/03/17 01:56 Pulse Rate 67 06/03/17 01:56 Respiratory Rate 20 06/03/17 01:56 Blood Pressure 112/65 06/03/17 01:56 O2 Sat by Pulse Oximetry (%) 94 L 06/03/17 09:00 Constitutional: Calm Cardiovascular: Yes: Regular Rate and Rhythm Respiratory: Yes: CTA Bilaterally Gastrointestinal Inspection: No: Distention ...Auscultate: Yes: Normoactive Bowel Sounds ...Palpate: Yes: Soft, Tenderness (TTP right abdomen). No: Guarding, Hepatomegaly, Splenomegaly ...Percussion: No: Tympanitic Edema: No (No LE edema) Neurological: Yes: Alert, Oriented Labs: CBC, BMP 06/03/17 06:30 06/03/17 06:30 Hepatic Panel Total Bilirubin 0.8 mg/dL (0.2-1.0) D 06/02/17 06:00 AST 11 U/L (15-37) L D 06/02/17 06:00 ALT 20 U/L (12-78) 06/02/17 06:00 Alkaline Phosphatase 81 U/L (45-117) 06/02/17 06:00 Albumin 3.1 g/dl (3.4-5.0) L 06/02/17 06:00 Problem List - Problems (1) Acute diverticulitis Assessment/Plan: Ms. Sanchez feels that the pain has improved however still with significant tenderness on exam Continue NPO, IV hydration, daily labs and IV Abx Surgical consult placed to have them on board Code(s): K57.92 - DVTRCLI OF INTEST, PART UNSP, W/O PERF OR ABSCESS W/O BLEED
--- NOTE | 2017-06-03 15:03 | PN ---
Progress Note, Physician History of Present Illness: feeling much better pain improved - Current Medication List Current Medications: Active Medications Piperacillin Sod/Tazobactam (Sod 3.375 gm/ Dextrose) 100 mls @ 200 mls/hr IVPB Q8H-IV LYNN PRN Reason: Protocol Last Admin: 06/03/17 11:08 Dose: 200 mls/hr Dextrose/Sodium Chloride (D5-1/2ns -) 1,000 mls @ 100 mls/hr IV ASDIR [facility] Last Admin: 06/03/17 11:09 Dose: 100 mls/hr Lisinopril (Prinivil) 10 mg PO DAILY [facility] Last Admin: 06/03/17 11:09 Dose: Not Given Morphine Sulfate (Morphine Injection -) 2 mg IVPUSH Q4H PRN PRN Reason: pain Last Admin: 06/03/17 11:27 Dose: 2 mg Ondansetron HCl (Zofran Injection) 4 mg IVPUSH Q4H PRN PRN Reason: NAUSEA AND/OR VOMITING Last Admin: 06/01/17 20:48 Dose: 4 mg Pantoprazole Sodium (Protonix Iv) 40 mg IVPUSH DAILY [facility] Last Admin: 06/03/17 11:08 Dose: 40 mg - Objective Vital Signs: Vital Signs Temperature 98.3 F 06/03/17 14:21 Pulse Rate 73 06/03/17 14:21 Respiratory Rate 16 06/03/17 14:21 Blood Pressure 124/70 06/03/17 14:21 O2 Sat by Pulse Oximetry (%) 94 L 06/03/17 09:00 Constitutional: Yes: Calm, Mild Distress Cardiovascular: Yes: Regular Rate and Rhythm Respiratory: Yes: Regular, CTA Bilaterally Gastrointestinal: Yes: Soft, Hypoactive Bowel Sounds Musculoskeletal: Yes: WNL Extremities: Yes: WNL Neurological: Yes: Alert, Oriented Psychiatric: Yes: Alert, Oriented Labs: CBC, BMP 06/03/17 06:30 06/03/17 06:30 Assessment/Plan patient with recurrent it seems diverticulitis recent colonoscopy Problem List - Problems (1) Acute diverticulitis Code(s): K57.92 - DVTRCLI OF INTEST, PART UNSP, W/O PERF OR ABSCESS W/O BLEED plan continue current abx rest as per primary team gi on board rest continue current mgmt
--- NOTE | 2017-06-03 17:36 | PN ---
Progress Note, Physician History of Present Illness: little better - Current Medication List Current Medications: Active Medications Piperacillin Sod/Tazobactam (Sod 3.375 gm/ Dextrose) 100 mls @ 200 mls/hr IVPB Q8H-IV LYNN PRN Reason: Protocol Last Admin: 06/03/17 17:23 Dose: 200 mls/hr Dextrose/Sodium Chloride (D5-1/2ns -) 1,000 mls @ 100 mls/hr IV ASDIR [facility] Last Admin: 06/03/17 11:09 Dose: 100 mls/hr Lisinopril (Prinivil) 10 mg PO DAILY [facility] Last Admin: 06/03/17 11:09 Dose: Not Given Morphine Sulfate (Morphine Injection -) 2 mg IVPUSH Q4H PRN PRN Reason: pain Last Admin: 06/03/17 11:27 Dose: 2 mg Ondansetron HCl (Zofran Injection) 4 mg IVPUSH Q4H PRN PRN Reason: NAUSEA AND/OR VOMITING Last Admin: 06/01/17 20:48 Dose: 4 mg Pantoprazole Sodium (Protonix Iv) 40 mg IVPUSH DAILY [facility] Last Admin: 06/03/17 11:08 Dose: 40 mg - Objective Vital Signs: Vital Signs Temperature 97.9 F 06/03/17 16:20 Pulse Rate 67 06/03/17 16:20 Respiratory Rate 20 06/03/17 16:20 Blood Pressure 116/70 06/03/17 16:20 O2 Sat by Pulse Oximetry (%) 94 L 06/03/17 09:00 Constitutional: Yes: No Distress HENT: Yes: Atraumatic Neck: Yes: Supple Cardiovascular: Yes: Regular Rate and Rhythm Respiratory: Yes: CTA Bilaterally Gastrointestinal: Yes: Normal Bowel Sounds, Tenderness (RLQ) Extremities: Yes: WNL Neurological: Yes: Alert, Oriented Labs: CBC, BMP 06/03/17 06:30 06/03/17 06:30 Problem List - Problems (1) Acute diverticulitis Assessment/Plan: npo ivf iv abx gi consult...done iv protonix Code(s): K57.92 - DVTRCLI OF INTEST, PART UNSP, W/O PERF OR ABSCESS W/O BLEED (2) HTN (hypertension) Assessment/Plan: on meds Code(s): I10 - ESSENTIAL (PRIMARY) HYPERTENSION
[2017-06-04] MEDS: PIPERACILLIN/TAZOB 3.375 GM 3.375 GM in DEXTROSE 5%-WATER - 100 ML IVPB SCH ×3 (02:44→17:12)
[2017-06-04] MEDS: morphine CARPU-JECT 10 MG/1 ML DISP.SYRIN IVPUSH PRN ×2 (03:49→15:40)
[2017-06-04 07:43] LABS: BASO % 0.7 % (0-2.0); EOS % 3.9 % (0-4.5); HEMATOCRIT 34.6 % (32.4-45.2); HEMOGLOBIN 11.5 GM/dL (10.7-15.3); LYMPH % 36.5 % (8-40); MCH 29.5 pg (25.7-33.7); MCHC 33.1 g/dl (32.0-36.0); MEAN CELL VOLUME 89.2 fl (80-96); MEAN PLT VOLUME 8.5 fl (7.5-11.1); NEUT % 49.9 % (42.8-82.8); PLATELET COUNT 174 K/MM3 (134-434); RBC 3.88 M/mm3 (3.60-5.2); RDW 13.3 % (11.6-15.6); WHITE BLOOD COUNT 5.5 K/mm3 (4.0-10.0)
[2017-06-04] MEDS ORDERED: PT OWN MED DRAWER 7, Y5N ONE ×2 (09:37→17:06)
[2017-06-04] MEDS: LISINOPRIL 10 MG TABLET (FP) PO SCH (10:00)
[2017-06-04] MEDS: PANTOPRAZOLE SODIUM 40 MG VIAL IVPUSH SCH (10:02)
--- NOTE | 2017-06-04 10:33 | PN ---
GI Progress Note Subjective: No acute events States overall feeling better, still with some pain - Objective Vital Signs: Vital Signs Temperature 97.5 F L 06/04/17 06:09 Pulse Rate 75 06/04/17 06:09 Respiratory Rate 20 06/04/17 06:09 Blood Pressure 114/55 06/04/17 06:09 O2 Sat by Pulse Oximetry (%) 98 06/03/17 21:00 Constitutional: Calm Eyes: No: Sclera Icterus Cardiovascular: Yes: Regular Rate and Rhythm Respiratory: Yes: CTA Bilaterally ...Auscultate: Yes: Normoactive Bowel Sounds ...Palpate: Yes: Tenderness (improved TTP right abdomen) ...Percussion: No: Tympanitic Labs: CBC, BMP 06/04/17 06:30 06/03/17 06:30 Laboratory Tests 06/04/17 06:30 C-Reactive Protein Pending Problem List - Problems (1) Acute diverticulitis Assessment/Plan: Clinically improved Advnace to clears Cont ABX Daily labs If tolerating PO, adjustment of fluids per PMD Code(s): K57.92 - DVTRCLI OF INTEST, PART UNSP, W/O PERF OR ABSCESS W/O BLEED
[2017-06-04] MEDS ORDERED: SODIUM CHLORIDE 1,000 ML IV SCH (11:30)
--- NOTE | 2017-06-04 11:49 | PN ---
Progress Note, Physician History of Present Illness: patient feeling better still with some abd pain but improving started on liquids - Current Medication List Current Medications: Active Medications Piperacillin Sod/Tazobactam (Sod 3.375 gm/ Dextrose) 100 mls @ 200 mls/hr IVPB Q8H-IV LYNN PRN Reason: Protocol Last Admin: 06/04/17 10:00 Dose: 200 mls/hr Dextrose/Sodium Chloride (D5-1/2ns -) 1,000 mls @ 100 mls/hr IV ASDIR [facility] Last Admin: 06/03/17 22:13 Dose: 100 mls/hr Lisinopril (Prinivil) 10 mg PO DAILY [facility] Last Admin: 06/04/17 10:00 Dose: 10 mg Morphine Sulfate (Morphine Injection -) 2 mg IVPUSH Q4H PRN PRN Reason: pain Last Admin: 06/04/17 03:49 Dose: 2 mg Ondansetron HCl (Zofran Injection) 4 mg IVPUSH Q4H PRN PRN Reason: NAUSEA AND/OR VOMITING Last Admin: 06/01/17 20:48 Dose: 4 mg Pantoprazole Sodium (Protonix Iv) 40 mg IVPUSH DAILY [facility] Last Admin: 06/04/17 10:02 Dose: 40 mg - Objective Vital Signs: Vital Signs Temperature 97.7 F 06/04/17 08:20 Pulse Rate 63 06/04/17 08:20 Respiratory Rate 18 06/04/17 08:20 Blood Pressure 129/75 06/04/17 08:20 O2 Sat by Pulse Oximetry (%) 98 06/03/17 21:00 Constitutional: Yes: Calm, Mild Distress Cardiovascular: Yes: S1, S2 Respiratory: Yes: Regular, CTA Bilaterally Gastrointestinal: Yes: Soft, Tenderness (improving) Musculoskeletal: Yes: WNL Extremities: Yes: WNL Neurological: Yes: Alert, Oriented Psychiatric: Yes: Alert, Oriented Labs: CBC, BMP 06/04/17 06:30 06/03/17 06:30 Assessment/Plan Problem List - Problems Problem List - Problems (1) Acute diverticulitis Code(s): K57.92 - DVTRCLI OF INTEST, PART UNSP, W/O PERF OR ABSCESS W/O BLEED (2) HTN (hypertension) Assessment/Plan: on meds Code(s): I10 - ESSENTIAL (PRIMARY) HYPERTENSION plan continue iv abx untill patient can tolerate orally rest as per gi/primary
--- NOTE | 2017-06-04 14:32 | EKG ---
Test Reason : Blood Pressure : / mmHG Vent. Rate : 063 BPM Atrial Rate : 063 BPM P-R Int : 152 ms QRS Dur : 076 ms QT Int : 432 ms P-R-T Axes : 033 -26 011 degrees QTc Int : 442 ms NORMAL SINUS RHYTHM NORMAL ECG WHEN COMPARED WITH ECG OF 01-JUN-2017 12:40, NO SIGNIFICANT CHANGE WAS FOUND Confirmed by CHIQUITA MILLAN MD ([id number]) on 06/04/2017 2:32:11 PM Referred By: Confirmed By:CHIQUITA MILLAN MD
--- NOTE | 2017-06-04 17:36 | PN ---
Progress Note, Physician History of Present Illness: feeling better - Current Medication List Current Medications: Active Medications Piperacillin Sod/Tazobactam (Sod 3.375 gm/ Dextrose) 100 mls @ 200 mls/hr IVPB Q8H-IV LYNN PRN Reason: Protocol Last Admin: 06/04/17 17:12 Dose: 200 mls/hr Lisinopril (Prinivil) 10 mg PO DAILY [facility] Last Admin: 06/04/17 10:00 Dose: 10 mg Morphine Sulfate (Morphine Injection -) 2 mg IVPUSH Q4H PRN PRN Reason: pain Last Admin: 06/04/17 15:40 Dose: 2 mg Ondansetron HCl (Zofran Injection) 4 mg IVPUSH Q4H PRN PRN Reason: NAUSEA AND/OR VOMITING Last Admin: 06/01/17 20:48 Dose: 4 mg Pantoprazole Sodium (Protonix Iv) 40 mg IVPUSH DAILY [facility] Last Admin: 06/04/17 10:02 Dose: 40 mg - Objective Vital Signs: Vital Signs Temperature 97.9 F 06/04/17 16:20 Pulse Rate 56 L 06/04/17 16:20 Respiratory Rate 18 06/04/17 16:20 Blood Pressure 117/69 06/04/17 16:20 O2 Sat by Pulse Oximetry (%) 98 06/03/17 21:00 Constitutional: Yes: No Distress HENT: Yes: Atraumatic Neck: Yes: Supple Cardiovascular: Yes: Regular Rate and Rhythm Respiratory: Yes: CTA Bilaterally Gastrointestinal: Yes: Tenderness (mild Rlq) Extremities: Yes: WNL Neurological: Yes: Alert, Oriented Labs: CBC, BMP 06/04/17 06:30 06/03/17 06:30 Problem List - Problems (1) Acute diverticulitis Assessment/Plan: on clear liquid diet ivf iv abx gi consult...done iv protonix Code(s): K57.92 - DVTRCLI OF INTEST, PART UNSP, W/O PERF OR ABSCESS W/O BLEED (2) HTN (hypertension) Assessment/Plan: on meds Code(s): I10 - ESSENTIAL (PRIMARY) HYPERTENSION
[2017-06-05] MEDS ORDERED: PT OWN MED DRAWER 7, Y5N ONE ×3 (00:25→17:51)
[2017-06-05] MEDS: morphine CARPU-JECT 10 MG/1 ML DISP.SYRIN IVPUSH PRN ×3 (00:27→23:58)
[2017-06-05] MEDS: PIPERACILLIN/TAZOB 3.375 GM 3.375 GM in DEXTROSE 5%-WATER - 100 ML IVPB SCH ×3 (01:43→17:54)
[2017-06-05 08:31] LABS: BASO % 0.7 % (0-2.0); EOS % 2.8 % (0-4.5); HEMATOCRIT 35.7 % (32.4-45.2); HEMOGLOBIN 11.9 GM/dL (10.7-15.3); LYMPH % 32.2 % (8-40); MCH 29.6 pg (25.7-33.7); MCHC 33.3 g/dl (32.0-36.0); MEAN CELL VOLUME 88.7 fl (80-96); MEAN PLT VOLUME 8.9 fl (7.5-11.1); NEUT % 54.3 % (42.8-82.8); PLATELET COUNT 182 K/MM3 (134-434); RBC 4.02 M/mm3 (3.60-5.2); RDW 13.4 % (11.6-15.6); WHITE BLOOD COUNT 5.9 K/mm3 (4.0-10.0)
[2017-06-05] MEDS: LISINOPRIL 10 MG TABLET (FP) PO SCH (09:08)
[2017-06-05] MEDS: PANTOPRAZOLE SODIUM 40 MG VIAL IVPUSH SCH (09:22)
--- NOTE | 2017-06-05 10:00 | PN ---
GI Progress Note Subjective: No acute events Overall states feeling better however still with pain in right abdomen - Objective Vital Signs: Vital Signs Temperature 98.3 F 06/05/17 06:00 Pulse Rate 72 06/05/17 06:00 Respiratory Rate 18 06/05/17 06:00 Blood Pressure 125/75 06/05/17 06:00 O2 Sat by Pulse Oximetry (%) 98 06/04/17 21:00 Constitutional: Calm Eyes: No: Sclera Icterus Cardiovascular: Yes: Regular Rate and Rhythm Respiratory: Yes: CTA Bilaterally Gastrointestinal Inspection: No: Distention ...Auscultate: Yes: Normoactive Bowel Sounds ...Palpate: Yes: Tenderness (Improved TTP right abdomen). No: Guarding, Tenderness, Rebound Edema: No Labs: CBC, BMP 06/05/17 06:30 06/03/17 06:30 Hepatic Panel Total Bilirubin 0.8 mg/dL (0.2-1.0) D 06/02/17 06:00 AST 11 U/L (15-37) L D 06/02/17 06:00 ALT 20 U/L (12-78) 06/02/17 06:00 Alkaline Phosphatase 81 U/L (45-117) 06/02/17 06:00 Albumin 3.1 g/dl (3.4-5.0) L 06/02/17 06:00 Laboratory Tests 06/03/17 06/04/17 06/05/17 06:30 06:30 06:30 C-Reactive Protein 1.5 H 0.5 H D < 0.3 Problem List - Problems (1) Acute diverticulitis Assessment/Plan: Right sided diverticulitis Clinically improved, CRP normalized although pain continues. Appears non-toxic For now: Advance to full liquids Daily labs IV hydration IV Abx If continued pain without change repeat CT scan Code(s): K57.92 - DVTRCLI OF INTEST, PART UNSP, W/O PERF OR ABSCESS W/O BLEED
--- NOTE | 2017-06-05 10:37 | PN ---
Progress Note, Physician History of Present Illness: patient doing better still with abd pain,but better - Current Medication List Current Medications: Active Medications Piperacillin Sod/Tazobactam (Sod 3.375 gm/ Dextrose) 100 mls @ 200 mls/hr IVPB Q8H-IV LYNN PRN Reason: Protocol Last Admin: 06/05/17 09:21 Dose: 200 mls/hr Lisinopril (Prinivil) 10 mg PO DAILY [facility] Last Admin: 06/05/17 09:08 Dose: 10 mg Morphine Sulfate (Morphine Injection -) 2 mg IVPUSH Q4H PRN PRN Reason: pain Last Admin: 06/05/17 09:08 Dose: 2 mg Ondansetron HCl (Zofran Injection) 4 mg IVPUSH Q4H PRN PRN Reason: NAUSEA AND/OR VOMITING Last Admin: 06/01/17 20:48 Dose: 4 mg Pantoprazole Sodium (Protonix Iv) 40 mg IVPUSH DAILY [facility] Last Admin: 06/05/17 09:22 Dose: 40 mg - Objective Vital Signs: Vital Signs Temperature 98.3 F 06/05/17 06:00 Pulse Rate 72 06/05/17 06:00 Respiratory Rate 18 06/05/17 06:00 Blood Pressure 125/75 06/05/17 06:00 O2 Sat by Pulse Oximetry (%) 98 06/04/17 21:00 Constitutional: Yes: No Distress, Calm Cardiovascular: Yes: Regular Rate and Rhythm Respiratory: Yes: Regular, CTA Bilaterally Gastrointestinal: Yes: Normal Bowel Sounds, Soft Musculoskeletal: Yes: WNL Extremities: Yes: WNL Neurological: Yes: Alert, Oriented Psychiatric: Yes: Alert, Oriented Labs: CBC, BMP 06/05/17 06:30 06/03/17 06:30 Assessment/Plan Problem List - Problems Problem List - Problems (1) Acute diverticulitis Code(s): K57.92 - DVTRCLI OF INTEST, PART UNSP, W/O PERF OR ABSCESS W/O BLEED (2) HTN (hypertension) Assessment/Plan: on meds Code(s): I10 - ESSENTIAL (PRIMARY) HYPERTENSION plan continue abx if pain continues then re scan rest as per primary
--- NOTE | 2017-06-05 13:16 | PN ---
Progress Note, Physician History of Present Illness: feeling better - Current Medication List Current Medications: Active Medications Piperacillin Sod/Tazobactam (Sod 3.375 gm/ Dextrose) 100 mls @ 200 mls/hr IVPB Q8H-IV LYNN PRN Reason: Protocol Last Admin: 06/05/17 09:21 Dose: 200 mls/hr Lisinopril (Prinivil) 10 mg PO DAILY [facility] Last Admin: 06/05/17 09:08 Dose: 10 mg Morphine Sulfate (Morphine Injection -) 2 mg IVPUSH Q4H PRN PRN Reason: pain Last Admin: 06/05/17 09:08 Dose: 2 mg Ondansetron HCl (Zofran Injection) 4 mg IVPUSH Q4H PRN PRN Reason: NAUSEA AND/OR VOMITING Last Admin: 06/01/17 20:48 Dose: 4 mg Pantoprazole Sodium (Protonix Iv) 40 mg IVPUSH DAILY [facility] Last Admin: 06/05/17 09:22 Dose: 40 mg - Objective Vital Signs: Vital Signs Temperature 97.7 F 06/05/17 08:45 Pulse Rate 85 06/05/17 08:45 Respiratory Rate 18 06/05/17 08:45 Blood Pressure 132/94 06/05/17 08:45 O2 Sat by Pulse Oximetry (%) 98 06/04/17 21:00 Constitutional: Yes: No Distress HENT: Yes: Atraumatic Neck: Yes: Supple Cardiovascular: Yes: Regular Rate and Rhythm Respiratory: Yes: CTA Bilaterally Gastrointestinal: Yes: Normal Bowel Sounds, Tenderness (rlq mild) Extremities: Yes: WNL Wound/Incision: Yes: Excoriated Neurological: Yes: Oriented Labs: CBC, BMP 06/05/17 06:30 06/03/17 06:30 Problem List - Problems (1) Acute diverticulitis Assessment/Plan: on full liquid diet iv abx if in pain tomorrow repeat ct scan belly..will wait for gi eval tomorrow iv protonix Code(s): K57.92 - DVTRCLI OF INTEST, PART UNSP, W/O PERF OR ABSCESS W/O BLEED (2) HTN (hypertension) Assessment/Plan: on meds Code(s): I10 - ESSENTIAL (PRIMARY) HYPERTENSION
[2017-06-05] MEDS ORDERED: BISACODYL 10 MG SUPP.RECT PR PRN (19:13)
[2017-06-06] MEDS: PIPERACILLIN/TAZOB 3.375 GM 3.375 GM in DEXTROSE 5%-WATER - 100 ML IVPB SCH ×2 (01:55→10:14)
[2017-06-06 08:12] LABS: BASO % 0.8 % (0-2.0); EOS % 2.7 % (0-4.5); HEMOGLOBIN 11.8 GM/dL (10.7-15.3); LYMPH % 33.7 % (8-40); MCH 29.8 pg (25.7-33.7); MCHC 33.6 g/dl (32.0-36.0); MEAN CELL VOLUME 88.8 fl (80-96); MEAN PLT VOLUME 9.2 fl (7.5-11.1); MONO % 9.4 % (3.8-10.2); NEUT % 53.4 % (42.8-82.8); PLATELET COUNT 202 K/MM3 (134-434); RBC 3.94 M/mm3 (3.60-5.2); RDW 13.5 % (11.6-15.6); WHITE BLOOD COUNT 6.3 K/mm3 (4.0-10.0)
[2017-06-06] MEDS ORDERED: PT OWN MED DRAWER 7, Y5N ONE (10:08)
[2017-06-06] MEDS: PANTOPRAZOLE SODIUM 40 MG VIAL IVPUSH SCH (10:14)
[2017-06-06] MEDS: LISINOPRIL 10 MG TABLET (FP) PO SCH (10:15)
--- NOTE | 2017-06-06 11:56 | PN ---
GI Progress Note Subjective: No acute events States feeling better however still with Right sided abdominal pain Tolerated full liquids - Objective Vital Signs: Vital Signs Temperature 98.1 F 06/06/17 06:00 Pulse Rate 68 06/06/17 06:00 Respiratory Rate 20 06/06/17 06:00 Blood Pressure 121/74 06/06/17 06:00 O2 Sat by Pulse Oximetry (%) 95 06/05/17 21:00 Constitutional: Calm Cardiovascular: Yes: Regular Rate and Rhythm Respiratory: Yes: CTA Bilaterally Gastrointestinal Inspection: Yes: Scars (midline vertical surgical scar.). No: Distention ...Auscultate: Yes: Normoactive Bowel Sounds ...Palpate: No: Hepatomegaly ...Percussion: No: Tympanitic Edema: No (No LE edema) Neurological: Yes: Alert, Oriented Labs: CBC, BMP 06/06/17 07:00 06/03/17 06:30 Hepatic Panel Total Bilirubin 0.8 mg/dL (0.2-1.0) D 06/02/17 06:00 AST 11 U/L (15-37) L D 06/02/17 06:00 ALT 20 U/L (12-78) 06/02/17 06:00 Alkaline Phosphatase 81 U/L (45-117) 06/02/17 06:00 Albumin 3.1 g/dl (3.4-5.0) L 06/02/17 06:00 Problem List - Problems (1) Acute diverticulitis Assessment/Plan: Improved however continued tenderness upon palpation: - Repeat CT scan with PO/IV contrast - Continue IV Abx - Full liquids Code(s): K57.92 - DVTRCLI OF INTEST, PART UNSP, W/O PERF OR ABSCESS W/O BLEED
--- NOTE | 2017-06-06 13:54 | PN ---
Progress Note, Physician History of Present Illness: stable still c/o of abd pain for repeat ct of abd - Current Medication List Current Medications: Active Medications Bisacodyl (Dulcolax Suppository -) 10 mg [place] PRN PRN PRN Reason: CONSTIPATION Piperacillin Sod/Tazobactam (Sod 3.375 gm/ Dextrose) 50 mls @ 100 mls/hr IVPB Q8H-IV LYNN PRN Reason: Protocol Lisinopril (Prinivil) 10 mg PO DAILY LYNN Last Admin: 06/06/17 10:15 Dose: 10 mg Morphine Sulfate (Morphine Injection -) 2 mg IVPUSH Q4H PRN PRN Reason: pain Last Admin: 06/05/17 23:58 Dose: 2 mg Ondansetron HCl (Zofran Injection) 4 mg IVPUSH Q4H PRN PRN Reason: NAUSEA AND/OR VOMITING Last Admin: 06/01/17 20:48 Dose: 4 mg - Objective Vital Signs: Vital Signs Temperature 98.2 F 06/06/17 10:00 Pulse Rate 80 06/06/17 10:00 Respiratory Rate 06/06/17 10:00 Blood Pressure 104/64 06/06/17 10:00 O2 Sat by Pulse Oximetry (%) 99 06/06/17 09:00 Constitutional: Yes: No Distress, Calm Cardiovascular: Yes: Regular Rate and Rhythm Respiratory: Yes: Regular, CTA Bilaterally Gastrointestinal: Yes: Normal Bowel Sounds, Soft Musculoskeletal: Yes: WNL Extremities: Yes: WNL Neurological: Yes: Alert, Oriented Psychiatric: Yes: Alert, Oriented Labs: CBC, BMP 06/06/17 07:00 06/03/17 06:30 Assessment/Plan Problem List - Problems Problem List - Problems (1) Acute diverticulitis Code(s): K57.92 - DVTRCLI OF INTEST, PART UNSP, W/O PERF OR ABSCESS W/O BLEED (2) HTN (hypertension) Assessment/Plan: on meds Code(s): I10 - ESSENTIAL (PRIMARY) HYPERTENSION plan continue abx if pain continues then re scan rest as per primary patient with minimal tenderness now
--- NOTE | 2017-06-06 17:37 | PN ---
Progress Note, Physician History of Present Illness: feeling better - Current Medication List Current Medications: Active Medications Bisacodyl (Dulcolax Suppository -) 10 mg [place] PRN PRN PRN Reason: CONSTIPATION Piperacillin Sod/Tazobactam (Sod 3.375 gm/ Dextrose) 50 mls @ 100 mls/hr IVPB Q8H-IV LYNN PRN Reason: Protocol Lisinopril (Prinivil) 10 mg PO DAILY LYNN Last Admin: 06/06/17 10:15 Dose: 10 mg Morphine Sulfate (Morphine Injection -) 2 mg IVPUSH Q4H PRN PRN Reason: pain Last Admin: 06/05/17 23:58 Dose: 2 mg Ondansetron HCl (Zofran Injection) 4 mg IVPUSH Q4H PRN PRN Reason: NAUSEA AND/OR VOMITING Last Admin: 06/01/17 20:48 Dose: 4 mg - Objective Vital Signs: Vital Signs Temperature 97.7 F 06/06/17 17:16 Pulse Rate 62 06/06/17 17:16 Respiratory Rate 20 06/06/17 17:16 Blood Pressure 122/74 06/06/17 17:16 O2 Sat by Pulse Oximetry (%) 99 06/06/17 09:00 Constitutional: Yes: No Distress HENT: Yes: Atraumatic Neck: Yes: Supple Cardiovascular: Yes: Regular Rate and Rhythm Respiratory: Yes: CTA Bilaterally Gastrointestinal: Yes: Normal Bowel Sounds, Tenderness (RLQ...mild) Extremities: Yes: WNL Neurological: Yes: Alert, Oriented Labs: CBC, BMP 06/06/17 07:00 06/03/17 06:30 Problem List - Problems (1) Acute diverticulitis Assessment/Plan: on full liquid diet iv abx ct scan done..no report yet iv protonix Code(s): K57.92 - DVTRCLI OF INTEST, PART UNSP, W/O PERF OR ABSCESS W/O BLEED (2) HTN (hypertension) Assessment/Plan: on meds Code(s): I10 - ESSENTIAL (PRIMARY) HYPERTENSION
[2017-06-06] MEDS: PIPERACILLIN/TAZOB 3.375 GM 3.375 GM in DEXTROSE 5%-WATER - 50 ML IVPB SCH (17:54)
[2017-06-07] MEDS: PIPERACILLIN/TAZOB 3.375 GM 3.375 GM in DEXTROSE 5%-WATER - 50 ML IVPB SCH (01:13)
[2017-06-07 08:39] LABS: BASO % 0.9 % (0-2.0); EOS % 3.2 % (0-4.5); HEMOGLOBIN 11.8 GM/dL (10.7-15.3); LYMPH % 38.2 % (8-40); MCH 29.8 pg (25.7-33.7); MCHC 33.6 g/dl (32.0-36.0); MEAN CELL VOLUME 88.6 fl (80-96); MEAN PLT VOLUME 8.9 fl (7.5-11.1); MONO % 10.3 % (3.8-10.2); NEUT % 47.4 % (42.8-82.8); PLATELET COUNT 204 K/MM3 (134-434); RBC 3.95 M/mm3 (3.60-5.2); RDW 13.4 % (11.6-15.6); WHITE BLOOD COUNT 5.3 K/mm3 (4.0-10.0)
--- NOTE | 2017-06-07 08:54 | PN ---
Progress Note, Physician History of Present Illness: stable improving repeat ct scan done - Current Medication List Current Medications: Active Medications Bisacodyl (Dulcolax Suppository -) 10 mg IN PRN PRN PRN Reason: CONSTIPATION Piperacillin Sod/Tazobactam (Sod 3.375 gm/ Dextrose) 50 mls @ 100 mls/hr IVPB Q8H-IV LYNN PRN Reason: Protocol Last Admin: 06/07/17 01:13 Dose: 100 mls/hr Lisinopril (Prinivil) 10 mg PO DAILY LYNN Last Admin: 06/06/17 10:15 Dose: 10 mg Morphine Sulfate (Morphine Injection -) 2 mg IVPUSH Q4H PRN PRN Reason: pain Last Admin: 06/05/17 23:58 Dose: 2 mg Ondansetron HCl (Zofran Injection) 4 mg IVPUSH Q4H PRN PRN Reason: NAUSEA AND/OR VOMITING Last Admin: 06/01/17 20:48 Dose: 4 mg - Objective Vital Signs: Vital Signs Temperature 98.1 F 06/07/17 06:00 Pulse Rate 62 06/07/17 06:00 Respiratory Rate 20 06/07/17 06:00 Blood Pressure 113/68 06/07/17 06:00 O2 Sat by Pulse Oximetry (%) 95 06/06/17 21:00 Constitutional: Yes: No Distress, Calm Cardiovascular: Yes: Regular Rate and Rhythm Respiratory: Yes: Regular, CTA Bilaterally Gastrointestinal: Yes: Normal Bowel Sounds, Soft Musculoskeletal: Yes: WNL Extremities: Yes: WNL Neurological: Yes: Alert, Oriented Psychiatric: Yes: Alert, Oriented Labs: CBC, BMP 06/07/17 07:00 06/03/17 06:30 Assessment/Plan Problem List - Problems Problem List - Problems (1) Acute diverticulitis Code(s): K57.92 - DVTRCLI OF INTEST, PART UNSP, W/O PERF OR ABSCESS W/O BLEED (2) HTN (hypertension) Assessment/Plan: on meds Code(s): I10 - ESSENTIAL (PRIMARY) HYPERTENSION plan will change abx to oral await for ct scan report rest as per gi and primary team
[2017-06-07] MEDS: LISINOPRIL 10 MG TABLET (FP) PO SCH (11:02)
--- NOTE | 2017-06-07 16:22 | PN ---
GI Progress Note Subjective: Patient states feeling much better CT scan shows improved diverticulitis in the right colon + BM's - Objective Vital Signs: Vital Signs Temperature 97.9 F 06/07/17 16:12 Pulse Rate 74 06/07/17 16:12 Respiratory Rate 18 06/07/17 16:12 Blood Pressure 113/59 06/07/17 16:12 O2 Sat by Pulse Oximetry (%) 99 06/07/17 09:00 Constitutional: Calm Eyes: No: Sclera Icterus Cardiovascular: Yes: Regular Rate and Rhythm Respiratory: Yes: CTA Bilaterally Gastrointestinal Inspection: No: Distention ...Auscultate: Yes: Normoactive Bowel Sounds ...Palpate: Yes: Tenderness (Minimal if any TTP in right abdomen). No: Guarding Labs: CBC, BMP 06/07/17 07:00 06/03/17 06:30 Problem List - Problems (1) Acute diverticulitis Assessment/Plan: Right sided diverticulitis: Clinically much improved Advise: Advance to low residue diet PO antibiotic regimen per ID. Total of 10 days Outpatient follow-up. Ms. Sanchez has already made an appointment for follow-up with a health outcomes liaison in [place] at the end of the month Continue low fiber diet for 4 weeks No GI objection to D/C home if tolerating diet Code(s): K57.92 - DVTRCLI OF INTEST, PART UNSP, W/O PERF OR ABSCESS W/O BLEED
[2017-06-07] MEDS: AMOX TR/POT CLAV 875MG/125MG TABLETS (FP) PO SCH (17:38)
--- NOTE | 2017-06-07 18:50 | PN ---
Progress Note, Physician History of Present Illness: had solid food tolerated - Current Medication List Current Medications: Active Medications Amoxicillin/Clavulanate Potassium (Augmentin - 875mg Tablet) 1 tab PO BID@0800, 1730 [facility] Last Admin: 06/07/17 17:38 Dose: 1 tab Bisacodyl (Dulcolax Suppository -) 10 mg [place] PRN PRN PRN Reason: CONSTIPATION Lisinopril (Prinivil) 10 mg PO DAILY [facility] Last Admin: 06/07/17 11:02 Dose: 10 mg Morphine Sulfate (Morphine Injection -) 2 mg IVPUSH Q4H PRN PRN Reason: pain Last Admin: 06/05/17 23:58 Dose: 2 mg Ondansetron HCl (Zofran Injection) 4 mg IVPUSH Q4H PRN PRN Reason: NAUSEA AND/OR VOMITING Last Admin: 06/01/17 20:48 Dose: 4 mg - Objective Vital Signs: Vital Signs Temperature 97.9 F 06/07/17 16:12 Pulse Rate 74 06/07/17 16:12 Respiratory Rate 18 06/07/17 16:12 Blood Pressure 113/59 06/07/17 16:12 O2 Sat by Pulse Oximetry (%) 99 06/07/17 09:00 Constitutional: Yes: No Distress HENT: Yes: Atraumatic Neck: Yes: Supple Cardiovascular: Yes: Regular Rate and Rhythm Respiratory: Yes: CTA Bilaterally Gastrointestinal: Yes: Normal Bowel Sounds, Tenderness, Rebound (minimal..rlq) Extremities: Yes: WNL Edema: No Peripheral Pulses WNL: Yes Neurological: Yes: Alert, Oriented Labs: CBC, BMP 06/07/17 07:00 06/03/17 06:30 Problem List - Problems (1) Acute diverticulitis Assessment/Plan: on low residue diet po abx ct scan report reviewed...improving diverticulitis dc in am if tolerating diet Code(s): K57.92 - DVTRCLI OF INTEST, PART UNSP, W/O PERF OR ABSCESS W/O BLEED (2) HTN (hypertension) Code(s): I10 - ESSENTIAL (PRIMARY) HYPERTENSION
[2017-06-08] MEDS: LISINOPRIL 10 MG TABLET (FP) PO SCH (09:26)
[2017-06-08] MEDS: AMOX TR/POT CLAV 875MG/125MG TABLETS (FP) PO SCH ×2 (09:26→16:55)
--- NOTE | 2017-06-08 12:31 | PN ---
Progress Note, Physician History of Present Illness: stable no complaints repeat ct scan done results noted - Current Medication List Current Medications: Active Medications Amoxicillin/Clavulanate Potassium (Augmentin - 875mg Tablet) 1 tab PO BID@0800, 1730 [facility] Last Admin: 06/08/17 09:26 Dose: 1 tab Bisacodyl (Dulcolax Suppository -) 10 mg [place] PRN PRN PRN Reason: CONSTIPATION Lisinopril (Prinivil) 10 mg PO DAILY [facility] Last Admin: 06/08/17 09:26 Dose: 10 mg Morphine Sulfate (Morphine Injection -) 2 mg IVPUSH Q4H PRN PRN Reason: pain Last Admin: 06/05/17 23:58 Dose: 2 mg Ondansetron HCl (Zofran Injection) 4 mg IVPUSH Q4H PRN PRN Reason: NAUSEA AND/OR VOMITING Last Admin: 06/01/17 20:48 Dose: 4 mg - Objective Vital Signs: Vital Signs Temperature 98.2 F 06/08/17 09:17 Pulse Rate 65 06/08/17 09:17 Respiratory Rate 20 06/08/17 09:17 Blood Pressure 120/70 06/08/17 09:17 O2 Sat by Pulse Oximetry (%) 99 06/08/17 09:00 Constitutional: Yes: No Distress, Calm HENT: Yes: Atraumatic Neck: Yes: Supple Cardiovascular: Yes: Regular Rate and Rhythm Respiratory: Yes: Regular, CTA Bilaterally Gastrointestinal: Yes: Normal Bowel Sounds, Soft Musculoskeletal: Yes: WNL Extremities: Yes: WNL Neurological: Yes: Alert, Oriented Psychiatric: Yes: Alert, Oriented Labs: CBC, BMP 06/07/17 07:00 06/03/17 06:30 Assessment/Plan Problem List - Problems Problem List - Problems (1) Acute diverticulitis Code(s): K57.92 - DVTRCLI OF INTEST, PART UNSP, W/O PERF OR ABSCESS W/O BLEED (2) HTN (hypertension) Assessment/Plan: on meds Code(s): I10 - ESSENTIAL (PRIMARY) HYPERTENSION plan conitnue oral abx need to follow wiht her gi patient stable careful diet rest as per primary team
[2017-06-08 15:20] VITALS: BP 106/62; PULSE 83; TEMP 98
--- NOTE | 2017-06-08 15:20 | DS ---
Physical Examination Vital Signs: Vital Signs Temperature 98.0 F 06/08/17 15:18 Pulse Rate 83 06/08/17 15:18 Respiratory Rate 20 06/08/17 15:18 Blood Pressure 106/62 06/08/17 15:18 O2 Sat by Pulse Oximetry (%) 99 06/08/17 09:00 Constitutional: Yes: No Distress HENT: Yes: Atraumatic Neck: Yes: Supple Cardiovascular: Yes: Regular Rate and Rhythm Respiratory: Yes: CTA Bilaterally Gastrointestinal: Yes: Normal Bowel Sounds, Tenderness (resolved) Extremities: Yes: WNL Neurological: Yes: Alert, Oriented Labs: CBC, BMP 06/07/17 07:00 06/03/17 06:30 Discharge Summary Reason For Visit: ACUTE DIVERTICULITIS OF INTESTINE Current Active Problems Acute diverticulitis (Acute) HTN (hypertension) (Acute) - Instructions Diet, Activity, Other Instructions: low fiber diet fu gi 1-2 weeks Referrals: STAFF,NOT ON [Primary Care Provider] - - Home Medications Comprehensive Discharge Medication List: Ambulatory Orders Acetaminophen [Tylenol] 650 mg PO DAILY PRN 06/01/17 Atorvastatin Ca [Lipitor] 20 mg PO HS 06/01/17 Cholecalciferol (Vitamin D3) [Vitamin D3] 2,000 unit PO DAILY 06/01/17 Lisinopril 10 mg PO DAILY 06/01/17 Meclizine HCl 25 mg PO DAILY 06/01/17 Hope-3S/Dha/Epa/Fish Oil [Fish Oil 1,200 mg Softgel] 1 each PO DAILY 06/01/17 Omeprazole 20 mg PO DAILY 06/01/17 Amoxicillin/Potassium Clav [Augmentin 875-125 Tablet] 1 each PO BID #14 tablet 06/05/17 Amoxicillin/Potassium Clav [Augmentin 875-125 Tablet] 1 each PO BID #14 tablet 06/07/17 sc home low residue diet
== END 2017-06-08 17:55 | disposition home or self-care (01) | DRG 392 ==
LOC: JER 08:13 → JERBED 15:48 → J8W 18:17
PROVIDERS: ADMIT Internal Medicine; ATTEND Internal Medicine
DX: K57.92 Diverticulitis of intestine, part unspecified, without perforation or abscess without bleeding (principal); I10 Essential (primary) hypertension; M48.00 Spinal stenosis, site unspecified; M79.7 Fibromyalgia; M81.0 Age-related osteoporosis without current pathological fracture
CPT/HCPCS: 36415; 74176-TC; 76705-TC; 80048; 80053; 81003; 81015; 82550; 84484; 85025; 86140; 90670; 93005; 93010; 99284-25; Q9967

== ENCOUNTER 2021-12-30 12:00 | Emergency (ER) | payer OTHER ==
[2021-12-30 12:51] VITALS: BP 129/72; PULSE 88; RESP 18; TEMP 97.5; BMI 24.5
[2021-12-30] MEDS ORDERED: IBUPROFEN 600 MG TABLET (FP) PO ONE ×2 (14:55→14:58)
== END 2021-12-30 17:03 | disposition home or self-care (01) ==
LOC: JER 12:00 → JERFT 12:00
DX: M25.551 Pain in right hip (principal)
CPT/HCPCS: 73700-TC-RT; 99284-25